=== PATIENT | female | born 1990 | race Hispanic/Latino ===

== ENCOUNTER 2019-06-04 05:31 | Inpatient (IN) | payer BC ==
[2019-06-04 06:06] VITALS: BMI 32.5
[2019-06-04] MEDS ORDERED: Acetaminophen 500 MG TAB PO PRN (06:34)
[2019-06-04] MEDS ORDERED: Butorphanol Tartrate 1 MG/ML VIAL SLOW IVP PRN (06:34)
[2019-06-04] MEDS ORDERED: Lactated Ringer's 1,000 ML IV SCH (06:34)
[2019-06-04] MEDS ORDERED: hydrALAZINE 20 MG/ML VIAL SLOW IVP PRN ×2 (06:34→20:55)
[2019-06-04] MEDS ORDERED: Promethazine HCl 25 MG/ML VIAL IM PRN (06:34)
[2019-06-04] MEDS ORDERED: Ondansetron PF 4 MG/2 ML Vial IVP PRN (06:34)
[2019-06-04 07:19] LABS: Hemoglobin 15.9 g/dL (12.0-16.0); Mean Corpuscular HGB CONC 34.4 g/dL (32.0-36.0); Mean Corpuscular Hemoglobin 33.6 pg (27.0-31.0); Mean Corpuscular Volume 97.5 fL (78.0-98.0); Mean Platelet Volume 11.9 fL (7.4-10.4); Platelet Count 184 thou/uL (130-400); RBC Distribution Width 14.5 % (11.5-14.5); Red Blood Cell (RBC) Count 4.74 mill/uL (4.20-5.40); White Blood Cell (WBC) Count 12.5 thou/uL (4.8-10.8)
[2019-06-04 07:45] LABS: Syphilis Antibody Nonreactive (Nonreactive); Syphilis Antibody Index 0.09 S/CO (<1.00 Non-Reactive)
[2019-06-04 07:45] LABS: HBSAg Index 0.15 S/CO (0-0.99); Hep B Surf Ag Non-Reactive S/CO (NonReactive)
[2019-06-04] MEDS ORDERED: NS / Oxytocin 40 units/1000ml 1,000 ML ONE (08:33)
[2019-06-04] MEDS ORDERED: Lidocaine 1% (PF) 30 ML VIAL ONE (08:33)
[2019-06-04] MEDS ORDERED: Dextrose 5%-Lactated Ringers 1,000 ML IV SCH (09:30)
[2019-06-04] MEDS: Dextrose 5%-Lactated Ringers 1,000 ML IV SCH ×2 (11:32→18:28)
--- NOTE | 2019-06-04 12:02 | PDOC.LDHP ---
Labor and Delivery H&P Chief complaint: contractions HPI: Had some mucus prior to going to bed last night. This AM at about 0400 contractions started and woke her up. Came to L&D at 0500. Was 5cm on admission. Desires low intervention. Current gestational age (weeks): 40 Due date: 05/30/19 Dating criteria: last menstrual period, first trimester ultrasound (8 weeks) Grav: 1 Para: 0 Current complications: none Abnormal US findings: No Current medications: pre-diego vitamins Previous surgical history: none Allergies/Adverse Reactions: Allergies Allergy/AdvReac Type Severity Reaction Status Date / Time No Known Allergies Allergy Unverified 06/04/19 06:07 Social history: none - Physical Exam Vital signs reviewed and normal: yes General: NAD, breathing through contractions Heart: RRR Lungs: CTAB Abdomen: gravid Extremeties: no edema FHT: category 2 (Minimal to moderate variability, no deceleration but no accelerations either.) [place] contractions every: 4-5 minutes - Vaginal Exam cm dilated: 7 Effacement: 90% Station: -1 - OB Labs Blood type: O RH: positive Antibody Screen: negative HIV: negative RPR: negative HEPSAg: negative 1 hour GCT: negative GBS: negative Urine drug screen: not done Rubella: immune - Assessment L&D Assessment: term patient in labor - Plan Plan: admit to L&D, labor augmentation if indicated, informed consent obtained, anesthesia consult for pain management, other (D5LR given for FHT tracing, O2 applied to mom with improvement in variability.)
[2019-06-04] MEDS ORDERED: NS w/ Oxytocin 10 units 500 ML ONE (12:04)
[2019-06-04] MEDS ORDERED: Ibuprofen 800 MG TAB PO PRN (12:06)
[2019-06-04] MEDS ORDERED: HYDROcodone/Acetaminophen 5/325 mg Tablet PO PRN ×2 (12:06→20:55)
[2019-06-04] MEDS ORDERED: Misoprostol 200 MCG TAB PR PRN (12:06)
[2019-06-04] MEDS ORDERED: Carboprost 250 MCG/ML AMP IM PRN (12:06)
[2019-06-04] MEDS ORDERED: Methylergonovine 0.2 MG/ML VIAL IM PRN (12:06)
[2019-06-04] MEDS ORDERED: NS / Oxytocin 40 units/1000ml 1,000 ML IV PRN (12:06)
--- NOTE | 2019-06-04 12:09 | PDOC.LDPN ---
Labor & Delivery Progress Note - Subjective Subjective: painful contractions (Only every 5-7 minutes, not very strong) - Objective Vital signs reviewed and normal: yes General: NAD, breathing through contractions Uterine fundus: non tender Dilation: 7 Effacement: 90% Station: -1 FHT: category 2 (Moderate variability, rare variable decels, no lates, no accels ), variability present [place] contractions every: 5-7 minutes AROM: clear fluid (No complications) IUPC placed: yes FSE placed: yes Resuscitative measures: maternal oxygen, maternal IV fluids (D5LR), maternal position change - Assessment (1) Term Code(s): Z34.90 - ENCNTR FOR SUPRVSN OF NORMAL , UNSP, UNSP TRIMESTER Current Visit: Yes Status: Acute (2) Spontaneous onset of labor Code(s): KBF0366 - Current Visit: Yes Status: Acute Plan: labor augmentation, pitocin for augmentation, resuscitative measures ( Labor progress has been slow. Contractions infrequent and inadequiate by IUPC. Will augment while keeping a close eye on baby and how he tolerates labor.)
[2019-06-04] MEDS ORDERED: NS w/ Oxytocin 10 units 500 ML IV SCH (12:15)
--- NOTE | 2019-06-04 17:47 | PDOC.OPDEL ---
OB Operative/Delivery Note Delivery Dr/Surgeon: Calvin Pre-Delivery Diagnosis: active labor Procedure/Post Delivery Dx: spontaneous vaginal delivery (, head OA, nuchal cord x1, reduced prior to the shoulders, shoulders and body easily followed. Baby placed on mother's chest.) Weeks gestation: 40 Anesthesia: local - Findings A Sex: female - 1 min: 8 - 5 min: 9 - Additional Findings/Plan Placenta delivered: spontaneous (Intact and 3 vessel cord) Repaired Obstetrical Laceration: 2nd degree (Midline perineal lac. Repaired under local anesthesia with 2.0 vicryl suture with excellent hemostasis. One additional area of bleeding repaired with one figure of 8 suture as well.) Estimated blood loss: 525 ml Post delivery plan: routine recovery
[2019-06-04] MEDS ORDERED: Bisacodyl 10 MG SUPP PR PRN (20:55)
[2019-06-04] MEDS ORDERED: traMADol HCl 50 MG TAB PO PRN (20:55)
[2019-06-04] MEDS ORDERED: Milk Of Magnesia 30 ML UDCUP PO PRN (20:55)
[2019-06-04] MEDS ORDERED: Lanolin Ointment 7 GM TUBE TOP PRN (20:55)
[2019-06-04] MEDS ORDERED: Benzocaine-Menthol 82.5 ML CAN TOP PRN (20:55)
[2019-06-04] MEDS ORDERED: NS / Oxytocin 40 units/1000ml 1,000 ML IV SCH (20:55)
[2019-06-05] MEDS: Docusate Calcium (SURFAK) 240 MG CAP PO SCH ×3 (02:42→22:15)
[2019-06-05] MEDS: Ibuprofen 800 MG TAB PO SCH ×4 (02:42→22:15)
[2019-06-05 05:52] LABS: Hemoglobin 12.5 g/dL (12.0-16.0); Mean Corpuscular HGB CONC 32.7 g/dL (32.0-36.0); Mean Platelet Volume 11.2 fL (7.4-10.4); Platelet Count 168 thou/uL (130-400); RBC Distribution Width 14.5 % (11.5-14.5); White Blood Cell (WBC) Count 18.8 thou/uL (4.8-10.8)
[2019-06-05] MEDS: Ferrous Sulfate 325 MG TAB PO SCH ×2 (12:18→13:41)
--- NOTE | 2019-06-05 15:37 | PDOC.PP ---
Post Progress Note Post Day #: 1 Subjective: Doing well. No C/O. pain controlled. Working on . PO intake tolerated: yes Flatus: yes Ambulation: yes Vital Signs (12 hours) Temp Pulse Resp BP 06/05/19 08:00 97.9 F 92 16 109/63 Weight Weight 190 lb - Physical Examination General: NAD Cardiovascular: no m/r/g, RRR Respiratory: clear to auscultation bilaterally Abdominal: + bowel sounds Extremities: negative homans (B) Neurological: no gross focal deficits Result Diagrams: 06/05/19 05:41 Additional Labs: Post Labs Blood Type O POSITIVE 06/04/19 06:50 Hep Bs Antigen Non-Reactive S/CO (NonReactive) 06/04/19 06:49 (1) Term Code(s): Z34.90 - ENCNTR FOR SUPRVSN OF NORMAL , UNSP, UNSP TRIMESTER Status: Acute (2) Spontaneous onset of labor Code(s): XTL1922 - Status: Acute (3) Vaginal delivery Code(s): O80 - ENCOUNTER FOR FULL-TERM UNCOMPLICATED DELIVERY Status: Acute - Assessment/Plan Routine care Continue to work on Home tomorrow.
[2019-06-06] MEDS: Ibuprofen 800 MG TAB PO SCH ×2 (05:06→12:58)
[2019-06-06] MEDS: Ferrous Sulfate 325 MG TAB PO SCH (07:58)
[2019-06-06] MEDS: Docusate Calcium (SURFAK) 240 MG CAP PO SCH (07:58)
[2019-06-06 08:08] VITALS: BP 97/52; TEMP 98.3
--- NOTE | 2019-06-06 12:16 | PDOC.PP ---
Post Progress Note Post Day #: 2 Subjective: No complaints. Feeling well. going well. PO intake tolerated: yes Flatus: yes Ambulation: yes Vital Signs (12 hours) Temp Pulse Resp BP Pulse Ox 06/06/19 08:07 98.3 F 77 20 97/52 L 98 06/06/19 04:41 98.1 F 87 16 105/61 95 06/06/19 00:32 97.9 F 82 16 102/56 L 95 Weight Weight 190 lb - Physical Examination General: NAD Cardiovascular: no m/r/g, RRR Respiratory: clear to auscultation bilaterally, non-labored breathing Abdominal: + bowel sounds, lochia, no distention, appropriately TTP Result Diagrams: 06/05/19 05:41 Additional Labs: Post Labs Blood Type O POSITIVE 06/04/19 06:50 Hep Bs Antigen Non-Reactive S/CO (NonReactive) 06/04/19 06:49 (1) Term Code(s): Z34.90 - ENCNTR FOR SUPRVSN OF NORMAL , UNSP, UNSP TRIMESTER Status: Acute (2) Spontaneous onset of labor Code(s): OBG2004 - Status: Acute (3) Vaginal delivery Code(s): O80 - ENCOUNTER FOR FULL-TERM UNCOMPLICATED DELIVERY Status: Acute - Assessment/Plan Routine PP care D/C home F/U in 6 weeks
== END 2019-06-06 15:20 | disposition home or self-care (01) | DRG 807 ==
LOC: L&D/OP 05:31 → L&D-LIB 08:25 → L&D 10:51 → 3SW 20:59
PROVIDERS: ADMIT Family Medicine; ATTEND Family Medicine
PROC: 10E0XZZ Delivery of Products of Conception, External Approach (ICD-10-PCS; principal; 2019-06-04)
PROC: 0KQM0ZZ Repair Perineum Muscle, Open Approach (ICD-10-PCS; 2019-06-04)
PROC: 10907ZC Drainage of Amniotic Fluid, Therapeutic from Products of Conception, Via Natural or Artificial Opening (ICD-10-PCS; 2019-06-04)
PROC: 3E033VJ Introduction of Other Hormone into Peripheral Vein, Percutaneous Approach (ICD-10-PCS; 2019-06-04)
PROC: 10H07YZ Insertion of Other Device into Products of Conception, Via Natural or Artificial Opening (ICD-10-PCS; 2019-06-04)
PROC: 10H073Z Insertion of Monitoring Electrode into Products of Conception, Via Natural or Artificial Opening (ICD-10-PCS; 2019-06-04)
DX: O69.81X0 Labor and delivery complicated by cord around neck, without compression, not applicable or unspecified (principal); Z37.0 Single live birth; Z3A.40 40 weeks gestation of pregnancy; O76 Abnormality in fetal heart rate and rhythm complicating labor and delivery; O70.1 Second degree perineal laceration during delivery
CPT/HCPCS: 36415; 85027; 86780; 86850; 86900; 86901; 87340; 99285; J2001; J2590